=== PATIENT | female | born 1980 ===

== ENCOUNTER 2018-03-05 08:39 | Emergency (ER) | payer OTHER ==
[2018-03-05 08:54] VITALS: BP 133/83
--- NOTE | 2018-03-05 09:53 | UC ---
Skin Complaint HPI - HPI Summary HPI Summary: Patient presents with a past medical history of MRSA, pilonidal cysts and abscesses. She is visiting from [place]. She believes she may have gotten a paper cut underneath her right medial nail edge, that has since become very swollen, red and painful. She states last night it throbbed and kept her awake. He states the pain is worse with any pressure, and or to touch and improves if she hold it up. She states the pain radiates up the side of her finger. She denies any fever, or chills, or red streaks coming up her finger. She denies pain in the joints with movement. - History of Current Complaint Chief Complaint: UCUpperExtremity Time Seen by Provider: 03/05/18 08:53 Stated Complaint: FINGER PAIN Hx Obtained From: Patient Hx Last Menstrual Period: now ?: No Onset/Duration: Gradual Onset, Lasting Days Skin Exposure Onset/Duration: Days Ago Onset Severity: Moderate Current Severity: Severe Pain Intensity: 5 Location: Discrete, Hand (Right) - right medial distal finger at nail edge. Aggravating Factor(s): Touch Alleviating Factor(s): Other - elevation Associated Signs & Symptoms: Positive: Tenderness - Allergy/Home Medications Allergies/Adverse Reactions: Allergies Allergy/AdvReac Type Severity Reaction Status Date / Time No Known Allergies Allergy Verified 03/05/18 08:54 Review of Systems Constitutional: Negative Skin: Other - right index finger redness, swelling and pain. Eyes: Negative ENT: Negative Respiratory: Negative Cardiovascular: Negative Gastrointestinal: Negative Genitourinary: Negative Motor: Negative Neurovascular: Negative Musculoskeletal: Other: Neurological: Negative Psychological: Negative Is Patient Immunocompromised?: No All Other Systems Reviewed And Are Negative: Yes PMH/Surg Hx/FS Hx/Imm Hx Previously Healthy: Yes - Surgical History Surgical History: None - Family History Known Family History: Positive: Other - paternal: cancer - Social History Alcohol Use: Occasionally Substance Use Type: None Smoking Status (MU): Light Every Day Tobacco Smoker Physical Exam Triage Information Reviewed: Yes Appearance: Well-Appearing Vital Signs: Initial Vital Signs Temp 98.6 F 03/05/18 08:51 Pulse 78 03/05/18 08:51 Resp 12 03/05/18 08:51 BP 133/83 03/05/18 08:51 Pulse Ox 98 03/05/18 08:51 Vital Signs Reviewed: Yes Eye Exam: Normal ENT Exam: Normal Dental Exam: Normal Neck exam: Normal Neck: Positive: 1 Respiratory Exam: Normal Cardiovascular Exam: Normal Abdominal Exam: Normal Musculoskeletal Exam: Normal Neurological Exam: Normal Psychological Exam: Normal Skin Exam: Normal, Other - right distal index finger medial jerry edge with small white collection under the skin, with surrounding erythema. Warm and tender to touch. ROM intact in all planes with no pain noted in the distal DIP joint. vascular exam + radial and ulnar pulses, capillary refill less than 3 secnds. Neuro; no deficits to touch distally. Course/Dx - Course Course Of Treatment: Patient presents with right index finger paronchia, once concent obained, and time out perfomed by verifity the patient name, date of , reviewed, the area was cleaned with provodine, and using a 11 blade a small incision made, and 1 ml of prulenent dranaged expressed. Culture obtained and pending. Patient treated with bactrim ds 1 table by mouth twice dialy for 10 days, and told to follow up with PCP Tuesday03/06/18. - Differential Diagnoses - Skin Complaint Differential Diagnoses: Abscess, Other - paronchia - Diagnoses Provider Diagnoses: paronchia. abscess Discharge - Sign-Out/Discharge Documenting (check all that apply): Patient Departure - Discharge Plan Condition: Stable Disposition: HOME Prescriptions: Sulfamethox/Trimethoprim DS* [Bactrim DS 800/160 TAB*] 1 tab PO BID #20 tab Patient Education Materials: Paronychia (ED), Abscess (ED) Referrals: No Primary Care Phys,NOPCP [Primary Care Provider] - - Billing Disposition and Condition Condition: STABLE Disposition: Home
--- NOTE | 2018-03-07 07:50 | UC ---
- Progress Note Progress Note: Reviewed cx report 03/05/18. Still prelim. However, thus far noteworthy mrsa and s. aureus. RN to call pt to advise to continue bactrim ds, unless otherwised notified (final cx / sens pending). RN to advised MRSA precautions. Seek medical attention for worse or new problems. Discharge - Sign-Out/Discharge Documenting (check all that apply): Post-Discharge Follow Up - Discharge Plan Condition: Stable Disposition: HOME Prescriptions: Sulfamethox/Trimethoprim DS* [Bactrim DS 800/160 TAB*] 1 tab PO BID #20 tab Patient Education Materials: Paronychia (ED), Abscess (ED) Referrals: No Primary Care Phys,NOPCP [Primary Care Provider] - - Billing Disposition and Condition Condition: STABLE Disposition: Home
--- NOTE | 2018-03-07 18:31 | UC ---
- Progress Note Progress Note: + sensitive to bactrim no change víctorj 03/07/18 Discharge - Sign-Out/Discharge Documenting (check all that apply): Post-Discharge Follow Up - Discharge Plan Condition: Stable Disposition: HOME Prescriptions: Sulfamethox/Trimethoprim DS* [Bactrim DS 800/160 TAB*] 1 tab PO BID #20 tab Patient Education Materials: Paronychia (ED), Abscess (ED) Referrals: No Primary Care Phys,NOPCP [Primary Care Provider] - - Billing Disposition and Condition Condition: STABLE Disposition: Home
== END 2018-03-05 09:55 | disposition home or self-care (01) ==
LOC: UCEAST 08:39
DX: L02.511 Cutaneous abscess of right hand (principal); L03.011 Cellulitis of right finger
CPT/HCPCS: 10060; 87070; 87077; 87186; 87205; 87640; 87641; 99202; G0463